=== PATIENT | female | born 1980 | race Hispanic/Latino ===

== ENCOUNTER → 2016-11-14 | Day surgery (SDC) | payer OTHER ==
[~2016-11-14] VITALS: Ht 162.6 cm; Wt 72.6 kg
[~2016-11-14] MED LIST: ACET25TA5 PO; ACET500C PO; ACET50TA PO; ACET50TAOT PO; B2100TAB PO; COLA100C3 PO; DIBU1OIN TOP; IBUP-1114 PO; IODINE STRONG SOLN 15 ML BTL As Ordered ONE; KETOROLAC 60 MG/2 ML VIAL (J1885) As Ordered ONE; LIDOCAINE 2% INJ 100 MG/5 ML SDV (FOR ANES.) As Ordered ONE; LIDOCAINE W/EPINEPHRINE 1% 20ML VIAL As Ordered ONE; LR 1,000 ML IV ONE; LR 1,000 ML IV SCH; MAGN1TAB25 PO; MAGN250T2 PO; MAXA10TA14 PO; MIDAZOLAM INJ 2 MG/2 ML VIAL (J2250) As Ordered ONE; NAPR250T2 PO; NORCO, ANEXSIA 5/325MG TABLET (HYDROcodone/ACETAMINOPHEN) PO PRN; ONDANSETRON 4MG/2ML VIAL (J2405) As Ordered ONE; ONDANSETRON 4MG/2ML VIAL (J2405) IV PRN; PRENTAB55 PO; PROPOFOL 200 MG/20 ML VIAL As Ordered ONE; SCOPOLAMINE 1.5 MG TRANSDERMAL As Ordered ONE; SCOPOLAMINE 1.5 MG TRANSDERMAL TOP ONE; VITA100T98 PO; VITAMIN B2 PO; VITAPRTA PO; [UNRECOGNIZED DRUG - REMARK]; birth control patch; dexameTHASONE 4 MG/ML 1ML VIAL (J1100) As Ordered ONE; fentaNYL 100 MCG/2 ML INJECTION (J3010) IV PRN; fentaNYL 250 MCG/5 ML INJECTION (J3010) As Ordered ONE
[2016-11-14 09:14] LABS: MEAN CORPUSCULAR HEMOGLOBIN 28.6 pg (27.0-33.0); MEAN CORPUSCULAR HGB CONC 34.2 g/dl (32.0-36.5); MEAN CORPUSCULAR VOLUME 83.6 fl (80.0-96.0); RED CELL DISTRIBUTION WIDTH 13.9 % (11.5-14.5)
[2016-11-14 09:27] LABS: CONTROL LINE HCG INT CTR LINE PRESENT
[2016-11-14 13:55] VITALS: BP 113/67
--- NOTE | 2016-11-20 07:30 | RO ---
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 POSTOPERATIVE DIAGNOSIS: Persistent cervical intraepithelial neoplasia 1 (TY 1), cervical dysplasia. PROCEDURE PERFORMED: Loop electrosurgical excision procedure (LEEP). SURGEON: Arabella Bowman MD CASINO DUTY MANAGER: None. ANTIBIOTICS: Not indicated. ESTIMATED BLOOD LOSS: 5 mL IV FLUIDS: 900 mL URINE OUTPUT: Not recorded. INDICATION: The patient is a 36-year-old 5, para 5 with persistent TY 1 noted on colposcopy, colposcopic biopsies. The patient was offered continued surveillance versus an excisional procedure, and she opted for a LEEP procedure. DESCRIPTION OF PROCEDURE: The risks, benefits, indications and alternatives of the procedure were reviewed with the patient and informed consent was obtained. The patient was taken to the operating room where general LMA anesthesia was attained. The patient was placed in dorsal lithotomy position, using gel padded Raymundo stirrups. A speculum was placed into the patient's vagina, and the cervix was identified. Using Lugol's solution, the cervix was cleaned and observed. Using a loop, a portion of the cervix was removed and sent to pathology for further review. Using Bovie cautery and Monsel's solution, excellent hemostasis was noted of the surgical bed. After hemostasis was obtained, the speculum was removed. Again, there was noted to be excellent hemostasis. All instruments were noted to be removed from the patient's vagina. At the conclusion of the case, sponge, lap and needle counts were correct times two. The patient was taken to the post-anesthesia care unit (PACU) in stable condition.
== END | disposition home or self-care (01) ==
LOC: M SDC 08:47
PROVIDERS: ATTEND Obstetrics & Gynecology
DX: N87.0 Mild cervical dysplasia (principal); K21.9 Gastro-esophageal reflux disease without esophagitis; G43.909 Migraine, unspecified, not intractable, without status migrainosus; G93.0 Cerebral cysts
CPT/HCPCS: 36415; 57460; 84703; 85027; 86850; 86900; 86901; 88307; J1100; J1885; J2250; J2405; J3010

== ENCOUNTER → 2017-01-02 | Outpatient (REF) | payer OTHER ==
[~2017-01-02] MED LIST changes: -IODINE STRONG SOLN 15 ML BTL As Ordered ONE; -KETOROLAC 60 MG/2 ML VIAL (J1885) As Ordered ONE; -LIDOCAINE 2% INJ 100 MG/5 ML SDV (FOR ANES.) As Ordered ONE; -LIDOCAINE W/EPINEPHRINE 1% 20ML VIAL As Ordered ONE; -LR 1,000 ML IV ONE; -LR 1,000 ML IV SCH; -MIDAZOLAM INJ 2 MG/2 ML VIAL (J2250) As Ordered ONE; -NORCO, ANEXSIA 5/325MG TABLET (HYDROcodone/ACETAMINOPHEN) PO PRN; -ONDANSETRON 4MG/2ML VIAL (J2405) As Ordered ONE; -ONDANSETRON 4MG/2ML VIAL (J2405) IV PRN; -PROPOFOL 200 MG/20 ML VIAL As Ordered ONE; -SCOPOLAMINE 1.5 MG TRANSDERMAL As Ordered ONE; -SCOPOLAMINE 1.5 MG TRANSDERMAL TOP ONE; -dexameTHASONE 4 MG/ML 1ML VIAL (J1100) As Ordered ONE; -fentaNYL 100 MCG/2 ML INJECTION (J3010) IV PRN; -fentaNYL 250 MCG/5 ML INJECTION (J3010) As Ordered ONE
[2017-01-02 13:58] LABS: BASO % 0.4 % (0.0-1.0); EOS # 0.1 K/mm3 (0.0-0.50); EOS % 2.1 % (0.0-3.0); LARGE UNSTAINED CELL # 0.1 K/mm3 (0.0-0.4); LYMPH # 1.2 K/mm3 (1.5-4.5); LYMPH % 26.3 % (24.0-44.0); MEAN CORPUSCULAR HEMOGLOBIN 28.1 pg (27.0-33.0); MEAN CORPUSCULAR HGB CONC 33.5 g/dl (32.0-36.5); MONO # 0.2 K/mm3 (0.0-0.8); MONO % 5.3 % (0.0-5.0); NEUTROPHILS # 2.7 K/mm3 (1.8-7.7); NEUTROPHILS % 63.8 % (36.0-66.0); PLATELET COUNT, AUTOMATED 274 k/mm3 (150-450); RED CELL DISTRIBUTION WIDTH 14.1 % (11.5-14.5); WHITE BLOOD COUNT 4.2 K/mm3 (4.0-10.0)
[2017-01-02 14:07] LABS: FOLATE > 24.0 NG/ML (>5.4); VITAMIN B12 LEVEL 478 PG/ML (247-911)
[2017-01-02 14:37] LABS: ALBUMIN 3.4 GM/DL (3.2-5.2); ALBUMIN/GLOBULIN RATIO 1.06 (1.00-1.93); ALKALINE PHOSPHATASE 85 U/L (45-117); ALT/SGPT 18 U/L (12-78); ANION GAP 5 MEQ/L (8-16); AST/SGOT 12 U/L (15-37); BILIRUBIN,TOTAL 0.3 MG/DL (0.2-1.0); BLOOD UREA NITROGEN 5 MG/DL (7-18); CALCIUM LEVEL 8.2 MG/DL (8.5-10.1); CARBON DIOXIDE LEVEL 26 MEQ/L (21-32); CHLORIDE LEVEL 109 MEQ/L (98-107); CREATININE FOR GFR 0.69 MG/DL (0.55-1.02); GLOMERULAR FILTRATION RATE > 60.0 (>60); GLUCOSE, FASTING 87 MG/DL (70-105); POTASSIUM SERUM 4.4 MEQ/L (3.5-5.1); SODIUM LEVEL 140 MEQ/L (136-145); TOTAL PROTEIN 6.6 GM/DL (6.4-8.2)
== END ==
LOC: M LABNEURO 13:24
PROVIDERS: ATTEND Physician Assistant Medical
DX: R05 Cough (principal)